=== PATIENT | female | born 1950 | race Caucasian/White ===

== ENCOUNTER → 2016-03-23 | Outpatient (CLI) | payer OTHER ==
--- NOTE | 2016-03-23 17:58 | DX ---
Lumbar Spine, Two Views , at 1700 hours Indication: Pain. Technique: Upright AP and lateral views. Comparison: None. Findings: Five nonrib-bearing lumbar vertebral bodies have minimal levocurvature, apex at L4. Later al view reveals 2 mm of retrolisthesis of L2 on L3 and 7 mm of anterolisthesis of L4 on L5. No compr ession fracture or pars defect. Minimal disk height loss is present at L4-L5 and L5-S1. Moderate pr oductive facet arthropathy is present at L3-L4, L4-L5, and L5-S1. Moderate volume of retained stool throughout the left side of the colon. Surgical clips in the right upper quadrant are likely from pr evious cholecystectomy. 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 Impressions 1. No compression fracture or pars defect. 2. Grade 1 spondylolisthesis at L2-L3 and L4-L5 likely due to facet arthropathy. 3. Minimal degenerative disk disease at L4-L5 and L5-S1.
== END ==
LOC: CIMAGING 16:43
PROVIDERS: ATTEND Family Medicine
DX: M43.16 Spondylolisthesis, lumbar region (principal)
CPT/HCPCS: 72100-PO

== ENCOUNTER → 2017-11-09 | Outpatient (CLI) | payer OTHER | LOC: FIMAGING 09:58 | PROVIDERS: ATTEND Family Medicine | DX: Z13.820 Encounter for screening for osteoporosis (principal); Z78.0 Asymptomatic menopausal state; Z87.81 Personal history of (healed) traumatic fracture ==